=== PATIENT | female | born 1985 | race Caucasian/White ===

== ENCOUNTER 2019-12-07 16:56 | Emergency (ER) | payer MEDICAID ==
[~2019-12-07] VITALS: Ht 170.2 cm; Wt 113.4 kg
--- NOTE | 2019-12-07 17:17 | NUR ---
ER BED 1 PT CAME IN C/O OF R SHOULDER PAIN 12/08. STATES THAT SHE WAS REACHING FOR A TOWEL WHEN SHE HEARD SOMETHING POP AND AFTER THAT STARTED FEELING 12/08 PAIN. SHE STATES THAT SHE HAS A HX OF DISLOCATION HER R SHOULDER. AWAITING TO BE SEEN BY
[2019-12-07] MEDS ORDERED: ONDANSETRON 4 MG TAB.RAPDIS PO ONE (17:30)
[2019-12-07] MEDS ORDERED: HYDROCODONE/APAP 5/325MG TABLET PO ONE (17:30)
[2019-12-07] MEDS ORDERED: PROPOFOL 20 ML IV ONE (17:44)
[2019-12-07] MEDS ORDERED: PROPOFOL 200 MG/20 ML VIAL IV ONE (18:00)
--- NOTE | 2019-12-07 18:00 | NUR ---
CLOSED RESUCTION WITH MODERATED SEDATION DONE WITH DR. SCHMIDT.
[2019-12-07] MEDS ORDERED: HYDROCODONE/APAP 5/325MG TABLET ONE (18:14)
[2019-12-07] MEDS ORDERED: ONDANSETRON 4 MG TAB.RAPDIS ONE (18:15)
--- NOTE | 2019-12-07 18:37 | NUR ---
PT IS MORE AWAKE NOW. NORCO AND ZOFRAN ADMINISTERED,
--- NOTE | 2019-12-07 18:37 | NUR ---
D/C Patient discharged to home in stable condition. Written and verbal after care instructions given. Patient verbalizes understanding of instruction. IV removed. Catheter intact and site benign. Pressure and 4x4 applied to site. No bleeding noted.
[2019-12-07 18:43] VITALS: BP 124/72
== END 2019-12-07 18:45 | disposition home or self-care (01) ==
LOC: ER 17:00
DX: S43.014A Anterior dislocation of right humerus, initial encounter (principal); S43.034A Inferior dislocation of right humerus, initial encounter; Z98.890 Other specified postprocedural states; X58.XXXA Exposure to other specified factors, initial encounter; Y93.89 Activity, other specified; Y92.89 Other specified places as the place of occurrence of the external cause; Y99.8 Other external cause status
CPT/HCPCS: 23650; 73020 ×2; 99152; 99285; J2704; Q0162; G0500

== ENCOUNTER 2023-04-09 17:57 | Emergency (ER) | payer MEDICAID ==
[~2023-04-09] VITALS: Ht 170.2 cm; Wt 114.8 kg
[2023-04-09] MEDS ORDERED: KETOROLAC TROMETHAMINE INJ 30 MG/ML VIAL ONE (18:54)
[2023-04-09] MEDS: KETOROLAC TROMETHAMINE INJ 60 MG/2 ML VIAL IM ONE (19:18)
[2023-04-09] MEDS ORDERED: NAPR-1164 PO (19:37)
[2023-04-09] MEDS ORDERED: ACET-2605 PO (19:37)
[2023-04-09 20:47] VITALS: BP 135/94; TEMP 98.5; O2SAT 98
== END 2023-04-09 20:47 | disposition home or self-care (01) ==
LOC: ER 18:27
DX: S43.014A Anterior dislocation of right humerus, initial encounter (principal); X58.XXXA Exposure to other specified factors, initial encounter; Y93.89 Activity, other specified; Y92.89 Other specified places as the place of occurrence of the external cause; Y99.8 Other external cause status
CPT/HCPCS: 99284; 23650; 73030 ×2; 96372; J1885